=== PATIENT | female | born 1955 | race Caucasian/White ===

== ENCOUNTER 2017-10-24 05:45 | Day surgery (SDC) | payer OTHER ==
[2017-10-24] MEDS ORDERED: MIDAZOLAM 1 MG/ML 2 ML INJ (07:58)
[2017-10-24] MEDS ORDERED: FENTAnyl 50 MCG/ML VIAL (07:58)
== END 2017-10-24 11:14 | disposition home or self-care (01) ==
LOC: GIL 05:45
DX: K44.9 Diaphragmatic hernia without obstruction or gangrene (principal); K21.9 Gastro-esophageal reflux disease without esophagitis; K29.70 Gastritis, unspecified, without bleeding
CPT/HCPCS: 43239; 87081